=== PATIENT | female | born 1975 | race Caucasian/White ===

== ENCOUNTER 2025-06-12 14:08 | Emergency (ER) | payer MEDICARE, SELFPAY ==
[2025-06-12 14:12] VITALS: BP 142/92; PULSE 86; RESP 20; TEMP 36.6; O2SAT 98; BMI 23.3
[2025-06-12 14:50] LABS: Microscopic, Urine URINE MICROSCOPIC (MICROSCOPIC)
[2025-06-12 14:51] LABS: Hematocrit 42.5 % (37.0-47.0); Hemoglobin 15.0 g/dL (12.2-16.2); Immature Granulocytes % 0.3 %; Mean Corpuscular HGB Conc 35.3 g/dL (31.8-35.4); Mean Corpuscular Hemoglobin 31.4 pg (27.0-31.2); Mean Corpuscular Volume 88.9 fl (81-99); Nucleated Red Blood Cells % 0 %; Platelet Count 334 K/mm3 (142-424); Red Blood Count 4.78 M/mm3 (4.20-5.40); Red Cell Distribution Width-SD 40.2 fL; White Blood Count 19.7 K/mm3 (4.8-10.8)
[2025-06-12 14:54] LABS: Albumin Level 5.0 g/dl (3.5-5.0); Chloride 94 mmol/L (98-107); Potassium 3.3 mmoL/L (3.5-5.1); Sodium 136 mmol/L (136-145)
--- NOTE | 2025-06-12 14:56 | ED_ITS ---
<Statement entered by Jose Begum MD - 06/12/25 18:10> I was consulted by the CHRISTIANO, and we discussed the complexity of the problems being addressed. I approve the treatment and management plan for this patient's care in the emergency department, thus performing a substantive portion of the medical decision making. Jose Begum MD Discharge Plan Disposition Patient Disposition: Home, Self-Care Condition: Good Referrals Follow up/Referrals: James Reyes II, MD [Staff Physician, Gastroenterology] - See instructions Provider,MD Liliam [Referring, Medical] - See instructions Activity Restrictions/Add. Instructions Additional Instructions/Restrictions: Please return to the emergency department with any worsening signs or symptoms. Please take all your at home medicine as prescribed, please take your pain medicine and nausea medicine as prescribed. Please follow-up with the GI doctor listed above in the upcoming days/weeks. Clinical Impressions Clinical Impression: Adrenal mass, left, Abdominal pain, Colitis Instructions Patient Instructions: DI for Acute Abdominal Pain, DI for Colitis Print Language Print Language: Korean Discharge ED Provider: Jose Begum General Adult HPI <KARLIE Bejarano - Last Filed: 06/12/25 16:52> General Chief complaint: Abdominal Pain Stated complaint: abdominal pain Time Seen by Provider: 06/12/25 14:25 Mode of Arrival: Ambulatory Source of Information: Patient Description of Symptoms (Recalled from ER Triage Doc. by RN): Pt presents with c/o abdominal pain since late yesterday afternoon. Pt also c/o loss of apetite as well as n/v since the abdominal pain started. Pt was being seen by her pcp today when he sent her to the ED for evaluation for possible appendicitis. History of Present Illness HPI narrative: 49-year-old female presents the emergency department via PCPs office for lower quadrant abdominal pain that started yesterday, PCP saw the patient today for routine outpatient follow-up, was concerned with possible appendicitis . Patient admits to subjective fever chills, denies any chest pain shortness of breath, admits to nausea and vomiting however patient states this is common for me . Patient denies any urinary type symptomatology, denies any diarrhea constipation, denies any hematochezia melena hematemesis or hemoptysis. Patient is a current everyday smoker, denies any alcohol use, admits to occasional delta 8 use, other past medical history consistent with CARMEN/MDD, current everyday narcotic use (p.o. [place]), hypertension, prior cholecystectomy. Initial triage vitals are unremarkable. Please note that above description of symptoms, in this electronic medical record under categorization of recalled from ER triage doctor by RN are reflective of an initial nursing assessment, however, is not reflective of my full history and physical exam that was personally taken and clarified. Consequentially, this preceding description of symptoms, which may include the patient's categorized chief complaint in the EMR, do not reflect my personal clinical impression, and the ultimate description of history of present illness and patient stated complaints should be deferred to this section of the note. Unless stated otherwise or congruent with this section of the note, additional signs, symptoms, or incongruence should be interpreted as inaccurate with my clinical impression. Onset (ago): day(s) Related Data Allergies Allergy/AdvReac Type Severity Reaction Status Date / Time Amoxicillin Allergy Unknown Rash Uncoded 06/12/25 14:19 Clavulanic Acid Allergy Unknown Rash Uncoded 06/12/25 14:19 [facility] <KARLIE Bejarano - Last Filed: 06/12/25 16:52> [facility] Disclaimer: The information contained in this section may have been updated after the patient was seen, as this information can be updated by other users. Social History (Updated 06/12/25 @ 16:52 by KARLIE Bejarano) Smoking Status: Current every day smoker alcohol intake: never current occupational status: other Travel in the last 8 weeks?: None Have you lived/traveled outside [place] in past 30 days?: No Contact w/someone who lives/traveled outside US past 30 days?: No Exposure to someone with infectious disease in past 14 days?: No Do you have a fever (greater than 100.4 F or 38 C)?: No Have you tested positive for COVID-19?: No Exposed to someone with COVID-19 in past 14 days?: No Do you have a sore throat?: No Do you have a cough?: No Do you have any weakness?: No Do you have any diarrhea?: No Are you experiencing any unusual bleeding?: No Do you have any muscle aches/pain?: No Do you have any abdominal pain?: Yes Are you experiencing loss of taste or smell?: No <KARLIE Bejarano - Last Filed: 06/12/25 16:52> ROS Obtained: Yes All systems reviewed & no additional complaints except as documented Physical Exam <KARLIE Bejarano - Last Filed: 06/12/25 16:52> General General appearance: alert and in no apparent distress Head Head exam: atraumatic and normocephalic Eye Eye exam: Present PERRL and EOMI ENT ENT exam: Present mucous membranes moist Neck Neck exam: Present normal inspection Chest Chest inspection: Present normal inspection and symmetric chest wall rise Respiratory Respiratory exam: Present normal lung sounds bilaterally; Absent respiratory distress Cardiovascular Cardiovascular exam: Present regular rate and normal rhythm Abdominal Exam Abdominal exam: Present soft, tenderness and tenderness at McBurney's Point; Absent guarding, rebound or rigidity Abdominal tenderness: Present RLQ, LLQ, suprapubic and mild Extremities Exam Extremities exam: Present normal inspection Back Exam Back exam: Absent CVA tenderness (R), CVA tenderness (L), muscle spasm or paraspinal tenderness Neurological Exam Neurological exam: Present alert and oriented X3 Psychiatric Psychiatric exam: Present normal affect Skin Skin exam: Present warm and dry Medical Decision Making <KARLIE Bejarano - Last Filed: 06/12/25 16:52> Medical Records Medical records reviewed: Yes I reviewed the patient's medical records. Screening: Per USPSTF and CDC recommendations, given the prevalence of disease in our region, it is our hospital?s policy to screen for HIV and viral Hepatitis for all patients aged 18 and over and those with ongoing risk factors. Koko Inquiry Pt receiving controlled substance: Yes Koko was queried for this patient: No Reason not queried -: Emergent pt cond-no time Risks and benefits of using a controlled substance: were discussed with pt by me Vital Signs: 06/12/25 14:12 06/12/25 16:03 Temperature 97.9 F 98.2 F Temperature Source Temporal Artery Scan Temporal Artery Scan Pulse Rate 94 H Pulse Rate [Right] 86 Respiratory Rate 20 18 Blood Pressure 131/92 H Blood Pressure [Right Arm] 142/92 H Blood Pressure Mean [Right Arm] 108 Blood Pressure Source Automatic Cuff Blood Pressure Source [Right Arm] Automatic Cuff Blood Pressure Position Sitting Blood Pressure Position [Right Arm] Sitting 02 Sat by Pulse Oximetry 98 100 Oxygen Delivery Method Room Air Room Air Lab Data Lab results reviewed: Yes I reviewed the patient's lab results. Lab Results 06/12/25 14:25: Urine Color Yellow, Urine Appearance Clear, Urine pH 5.5, Ur Specific [place] <= 1.005, Urine Protein Negative, Urine Glucose (UA) Negative, Urine Ketones Negative, Urine Blood Negative, Urine Nitrate Negative, Urine Bilirubin Negative, Urine Urobilinogen 0.2, Ur Leukocyte Esterase Negative, Urine RBC 3-5, Urine WBC None, Ur Squamous Epith Cells Occasional, Urine Bacteria None 06/12/25 14:30: WBC 19.7 H, RBC 4.78, Hgb 15.0, Hct 42.5, MCV 88.9, MCH 31.4 H, MCHC 35.3, RDW 12.3, Plt Count 334, MPV 10.4, Neut % (Auto) 77.8, Lymph % (Auto) 13.3, Sawyer % (Auto) 7.7, Eos % (Auto) 0.4, Baso % (Auto) 0.5, Neut # (Auto) 15.4 H, Lymph # (Auto) 2.6, Sawyer # (Auto) 1.5 H, Eos # (Auto) 0.1, Baso # (Auto) 0.1, Sodium 136, Potassium 3.3 L, Chloride 94 L, Carbon Dioxide 30, Anion Gap 15.3 H, BUN 9, Creatinine 0.80, Estimated Creat Clear 78, Estimated GFR 76, Est GFR ( Amer) 92, Glucose 109 H, Lactate 1.0, Calcium 9.4, Total Bilirubin 0.9, AST 43 H, ALT 29, Alkaline Phosphatase 86, Total Protein 8.5 H, Albumin 5.0, G lobulin 3.5 H, Albumin/Globulin Ratio 1.4, Lipase 12 L 06/12/25 14:30 06/12/25 14:30 Orders (Tests/Meds): ED MEDICATIONS Generic Name Dose Route Start Last Admin Trade Name Freq PRN Reason Stop Dose Admin Potassium Chloride 40 meq 06/12/25 16:41 Potassium Chloride 20meq Tab PO 06/12/25 16:42 ONCE ONE Discontinued Medications Generic Name Dose Route Start Last Admin Trade Name Freq PRN Reason Stop Dose Admin Iopamidol 75 ml 06/12/25 15:12 06/12/25 15:12 Iopamidol-370 (76%);100ml Bottle IV 06/12/25 15:13 75 ml ONCE ONE Administration Morphine Sulfate 4 mg 06/12/25 15:03 06/12/25 15:20 Morphine 4mg/Ml Syringe IV 06/12/25 15:04 4 mg ONCE ONE Administration Morphine Sulfate 2 mg 06/12/25 16:15 06/12/25 16:14 Morphine 4mg/Ml Syringe IV 06/12/25 16:16 2 mg ONCE ONE Administration Ondansetron HCl 4 mg 06/12/25 15:03 06/12/25 15:20 Ondansetron 4mg/2ml Vial IV 06/12/25 15:04 4 mg ONCE ONE Administration Sodium Chloride 10 ml 06/12/25 15:12 06/12/25 15:12 Sodium Chloride 0.9% 10ml Syr (Rad Only) IV 06/12/25 15:13 10 ml ONCE ONE Administration ORDERS Category Date Time Status CT abdomen pelvis w con Stat Cat Scan 06/12/25 15:02 Completed Complete Blood Count Auto Diff Stat Lab 06/12/25 14:30 Completed Comprehensive Metabolic Panel Stat Lab 06/12/25 14:30 Completed Lactic Acid Stat Lab 06/12/25 14:30 Completed Lipase Stat Lab 06/12/25 14:30 Completed Urinalysis and Microscopic Stat Lab 06/12/25 14:25 Completed Medical Decision Narrative: 49-year-old female presents emergency department with abdominal pain for 1 day with nausea vomiting and poor p.o. intake, differential diagnose include but not limited to, appendicitis, diverticulitis, pancreatitis, ileus, colitis, bowel obstruction, constipation, acute UTI, nephrolithiasis, urolithiasis, acute pyelonephritis among others. I discussed this patient's case with the temperature Dr. Begum as well as the attending physician Dr. Acevedo Will obtain basic laboratory studies, lactic acid, lipase level, urinalysis, CT ab pelvis with contrast, will give 4 mg IV morphine and 4 mg Zofran for pain and nausea. CBC is noted for leukocytosis at 19.7 CMP is notable for hypokalemia at 3.3, will replace patient's hypokalemia with 40 mill equivalents p.o. potassium. No lactic acidosis, AST is minimally rate of 43, otherwise unremarkable CMP UA is unremarkable I was notified by nursing staff approximately 4:05 PM the patient still complaining of some pain will give additional dose of 2 mg IV morphine for pain. I reviewed the patient's CT abdomen pelvis with contrast along the corresponding radiologic report, long segment wall thickening of the right colon may reflect infectious colitis or inflammatory bowel disease, thickened bladder wall may indicate underlying cystitis, left adrenal mass, recommend CT or MRI follow-up using adrenal mass protocol on a nonemergent basis. Reexamination of the patient at approximately 4:40 PM, patient is resting comfortably, pain is controlled, discussed all results with the patient at the bedside, patient is remained hemodynamically stable with her time in the emergency department. Patient has antiemetics at home. Recommend she uses can recommend follow-up with GI for colitis. And possible colonoscopy. Patient states that she has been diagnosed with IBS but no IBD. Patient tells me that she has nausea and vomiting almost daily . Recommend follow-up with GI for this. Patient voiced understanding and agreed with the current treatment plan/discharge plan. <Jose Acevedo MD - Last Filed: 06/12/25 16:54> Vital Signs: 06/12/25 14:12 06/12/25 16:03 Temperature 97.9 F 98.2 F Temperature Source Temporal Artery Scan Temporal Artery Scan Pulse Rate 94 H Pulse Rate [Right] 86 Respiratory Rate 20 18 Blood Pressure 131/92 H Blood Pressure [Right Arm] 142/92 H Blood Pressure Mean [Right Arm] 108 Blood Pressure Source Automatic Cuff Blood Pressure Source [Right Arm] Automatic Cuff Blood Pressure Position Sitting Blood Pressure Position [Right Arm] Sitting 02 Sat by Pulse Oximetry 98 100 Oxygen Delivery Method Room Air Room Air Lab Data Lab Results 06/12/25 14:25: Urine Color Yellow, Urine Appearance Clear, Urine pH 5.5, Ur Specific [place] <= 1.005, Urine Protein Negative, Urine Glucose (UA) Negative, Urine Ketones Negative, Urine Blood Negative, Urine Nitrate Negative, Urine Bilirubin Negative, Urine Urobilinogen 0.2, Ur Leukocyte Esterase Negative, Urine RBC 3-5, Urine WBC None, Ur Squamous Epith Cells Occasional, Urine Bacteria None 06/12/25 14:30: WBC 19.7 H, RBC 4.78, Hgb 15.0, Hct 42.5, MCV 88.9, MCH 31.4 H, MCHC 35.3, RDW 12.3, Plt Count 334, MPV 10.4, Neut % (Auto) 77.8, Lymph % (Auto) 13.3, Sawyer % (Auto) 7.7, Eos % (Auto) 0.4, Baso % (Auto) 0.5, Neut # (Auto) 15.4 H, Lymph # (Auto) 2.6, [place]yer # (Auto) 1.5 H, Eos # (Auto) 0.1, Baso # (Auto) 0.1, Sodium 136, Potassium 3.3 L, Chloride 94 L, Carbon Dioxide 30, Anion Gap 15.3 H, BUN 9, Creatinine 0.80, Estimated Creat Clear 78, Estimated GFR 76, Est GFR ( Amer) 92, Glucose 109 H, Lactate 1.0, Calcium 9.4, Total Bilirubin 0.9, AST 43 H, ALT 29, Alkaline Phosphatase 86, Total Protein 8.5 H, Albumin 5.0, G lobulin 3.5 H, Albumin/Globulin Ratio 1.4, Lipase 12 L Orders (Tests/Meds): ED MEDICATIONS Generic Name Dose Route Start Last Admin Trade Name Freq PRN Reason Stop Dose Admin Potassium Chloride 40 meq 06/12/25 16:41 Potassium Chloride 20meq Tab PO 06/12/25 16:42 ONCE ONE Discontinued Medications Generic Name Dose Route Start Last Admin Trade Name Freq PRN Reason Stop Dose Admin Iopamidol 75 ml 06/12/25 15:12 06/12/25 15:12 Iopamidol-370 (76%);100ml Bottle IV 06/12/25 15:13 75 ml ONCE ONE Administration Morphine Sulfate 4 mg 06/12/25 15:03 06/12/25 15:20 Morphine 4mg/Ml Syringe IV 06/12/25 15:04 4 mg ONCE ONE Administration Morphine Sulfate 2 mg 06/12/25 16:15 06/12/25 16:14 Morphine 4mg/Ml Syringe IV 06/12/25 16:16 2 mg ONCE ONE Administration Ondansetron HCl 4 mg 06/12/25 15:03 06/12/25 15:20 Ondansetron 4mg/2ml Vial IV 06/12/25 15:04 4 mg ONCE ONE Administration Sodium Chloride 10 ml 06/12/25 15:12 06/12/25 15:12 Sodium Chloride 0.9% 10ml Syr (Rad Only) IV 06/12/25 15:13 10 ml ONCE ONE Administration ORDERS Category Date Time Status CT abdomen pelvis w con Stat Cat Scan 06/12/25 15:02 Completed Complete Blood Count Auto Diff Stat Lab 06/12/25 14:30 Completed Comprehensive Metabolic Panel Stat Lab 06/12/25 14:30 Completed Lactic Acid Stat Lab 06/12/25 14:30 Completed Lipase Stat Lab 06/12/25 14:30 Completed Urinalysis and Microscopic Stat Lab 06/12/25 14:25 Completed Medical Decision Narrative: 49-year-old female presents emergency department with abdominal pain for 1 day with nausea vomiting and poor p.o. intake, differential diagnose include but not limited to, appendicitis, diverticulitis, pancreatitis, ileus, colitis, bowel obstruction, constipation, acute UTI, nephrolithiasis, urolithiasis, acute pyelonephritis among others. I discussed this patient's case with the temperature Dr. Begum as well as the attending physician Dr. Acevedo Will obtain basic laboratory studies, lactic acid, lipase level, urinalysis, CT ab pelvis with contrast, will give 4 mg IV morphine and 4 mg Zofran for pain and nausea. CBC is noted for leukocytosis at 19.7 CMP is notable for hypokalemia at 3.3, will replace patient's hypokalemia with 40 mill equivalents p.o. potassium. No lactic acidosis, AST is minimally rate of 43, otherwise unremarkable CMP UA is unremarkable I was notified by nursing staff approximately 4:05 PM the patient still complaining of some pain will give additional dose of 2 mg IV morphine for pain. I reviewed the patient's CT abdomen pelvis with contrast along the corresponding radiologic report, long segment wall thickening of the right colon may reflect infectious colitis or inflammatory bowel disease, thickened bladder wall may indicate underlying cystitis, left adrenal mass, recommend CT or MRI follow-up using adrenal mass protocol on a nonemergent basis. Reexamination of the patient at approximately 4:40 PM, patient is resting comfortably, pain is controlled, discussed all results with the patient at the bedside, patient is remained hemodynamically stable with her time in the emergency department. Patient has antiemetics at home. Recommend she uses can recommend follow-up with GI for colitis. And possible colonoscopy. Patient states that she has been diagnosed with IBS but no IBD. Patient tells me that she has nausea and vomiting almost daily . Recommend follow-up with GI for this. Patient voiced understanding and agreed with the current treatment plan/discharge plan. Jose Acevedo MD: I was consulted by the CHRISTIANO, and we discussed the complexity of the problems being addressed. I approved the treatment and management plan for this patient's care in the emergency department, thus performing a substantive portion of the medical decision making. Critical Care <KARLIE Bejarano - Last Filed: 06/12/25 16:52> Critical Care Time Critical Care Time: No
[2025-06-12 14:57] LABS: Alanine Aminotransferase 29 U/L (12-78); Albumin/Globulin Ratio 1.4 (1.1-1.8); Alkaline Phosphatase 86 U/L (38-126); Anion Gap 15.3 mEq/L (5-15); Aspartate Amino Transferase 43 U/L (14-36); Bilirubin,Total 0.9 mg/dl (0.2-1.3); Blood Urea Nitrogen 9 mg/dl (7-17); Carbon Dioxide 30 mmol/L (22.0-30.0); Creatinine Clearance Estimated 78 mL/min (50-200); Creatinine,Serum 0.80 mg/dl (0.52-1.04); Estimated Glomerular Filt Rate 76 ml/min (>60); GFR (African American) 92 ML/MIN (>60); Globulin 3.5 g/dL (1.3-3.2); Lipase 12 U/L (23-300); Total Protein,Serum 8.5 g/dl (6.3-8.2)
[2025-06-12 14:58] LABS: Calcium 9.4 mg/dl (8.4-10.2); Glucose 109 mg/dl (74-100)
--- NOTE | 2025-06-12 15:02 | CT_ITS ---
FINAL REPORT TECHNIQUE: Oral and IV contrast enhanced exam This study was performed with techniques to keep radiation doses as low as reasonably achievable, (ALARA). Individualized dose reduction techniques using automated exposure control or adjustment of mA and/or kV according to the patient''s size were employed. CLINICAL HISTORY: RLQ abd pain/lower ABD pain started yesterday FINDINGS: Abdomen: No acute density is seen within the lung bases. There is a 17 mm left adrenal mass which is nonspecific. The remaining solid abdominal organs are unremarkable. Patient is status postcholecystectomy. There is moderate extrahepatic biliary ductal dilatation. Common hepatic duct measures 13 mm. There is fluid-filled small bowel without dilatation, may reflect ileus or enteritis. Abnormal wall thickening of right colon may indicate infectious colitis or even inflammatory bowel disease. There is no adenopathy. Pelvis: There is no evidence of appendicitis. There is mild bladder wall thickening, cystitis is not excluded. Patient is status post hysterectomy. There is no free fluid. IMPRESSION: Long segment wall thickening right colon may reflect infectious colitis or inflammatory bowel disease. Thickened bladder wall may indicate underlying cystitis. Left adrenal mass. Recommend CT or MR follow-up using adrenal mass protocol on a nonemergent basis. Reviewed, Interpreted and Dictated by Josette Avila MD Transcribed by Lia Daigle Authenticated and [facility]
[2025-06-12 15:03] LABS: Bilirubin,Urine Negative (Negative); Color,Urine YELLOW (Yellow); Glucose,Urine (UA) Negative (Negative); Ketones,Urine Negative (Negative); Leukocyte Esterase,Urine Negative (Negative); PH,Urine 5.5 (5.0-8.5); Protein,Urine Negative (Negative); Specific Gravity, Urine <= 1.005 (1.005-1.030); Urobilinogen,Urine 0.2 EU/dl (0.2)
[2025-06-12] MEDS: IOPAMIDOL-370 (76%);100ML BOTTLE 75 ML IV (15:12)
[2025-06-12] MEDS: SODIUM CHLORIDE 0.9% 10ML SYR (RAD ONLY) 10 ML IV (15:12)
[2025-06-12] MEDS: ONDANSETRON 4MG/2ML VIAL 4 MG IV (15:20)
[2025-06-12] MEDS: MORPHINE 4MG/ML SYRINGE 4 MG IV (15:20)
[2025-06-12 15:29] LABS: Squamous Epithelial Cell,Urine Occasional #/hpf (0-5)
[2025-06-12 16:03] VITALS: BP 131/92; PULSE 94; RESP 18; TEMP 36.8; O2SAT 100
[2025-06-12] MEDS: MORPHINE 4MG/ML SYRINGE 2 MG IV (16:14)
[2025-06-12] MEDS: POTASSIUM CHLORIDE 20MEQ TAB 40 MEQ PO (16:56)
[2025-06-12 17:01] VITALS: BP 140/86; PULSE 90; RESP 20; TEMP 36.8; O2SAT 98
== END 2025-06-12 17:02 | disposition home or self-care (01) ==
PROVIDERS: Physician Assistant; Emergency Provider Student in an Organized Health Care Education/Training Program; PCP Pediatrics
DX: R10.84 Generalized abdominal pain (principal); E87.6 Hypokalemia; R11.2 Nausea with vomiting, unspecified; D72.829 Elevated white blood cell count, unspecified; K52.9 Noninfective gastroenteritis and colitis, unspecified; E27.8 Other specified disorders of adrenal gland; F17.210 Nicotine dependence, cigarettes, uncomplicated
CPT/HCPCS: 74177; 80053; 81001; 83605; 83690; 85025; 96374; 96375; 96376; 99284; J2270; J2405; Q9967